=== PATIENT | female | born 1980 ===

== ENCOUNTER 2016-11-13 16:11 | Emergency (ER) | payer OTHER ==
[2016-11-13 17:10] LABS: BASOPHILS % (AUTO) 1 % (0-3); EOSINOPHILS % (AUTO) 5 % (0-9); HEMATOCRIT 43 % (35-47); MEAN CORPUSCULAR HGB CONC 33.9 gm/dl (32.0-36.0); MEAN CORPUSCULAR VOLUME 83 fL (81-99); MONOCYTES % (AUTO) 6.6 % (0-12); NEUTROPHILS % (AUTO) 50.8 % (37-80)
[2016-11-13 17:17] LABS: APPEARANCE,URINE Clear; BILIRUBIN,URINE NEGATIVE (NEGATIVE); COLOR,URINE Yellow; GLUCOSE, URINE (UA) NEGATIVE (NEGATIVE); KETONES,URINE NEGATIVE (NEGATIVE); LEUKOCYTE ESTERASE ,URINE NEGATIVE (NEGATIVE); NITRATE,URINE NEGATIVE (NEGATIVE); OCCULT BLOOD,URINE NEGATIVE (NEG-TRACE); PH,URINE 7.5; UROBILINOGEN,URINE 0.2 (0.2-1.0 EU)
[2016-11-13 17:28] LABS: ALBUMIN 4.1 gm/dl (3.4-5.0); POTASSIUM 3.8 mMol/L (3.5-5.1)
[2016-11-13 17:31] LABS: RBC,URINE 0-1 (0-3AV/HPF); WBC,URINE 0-2 (0-5AV/HPF)
[2016-11-13 17:39] VITALS: TEMP 99.3
[2016-11-13 19:22] VITALS: BP 140/83; PULSE 54; RESP 18; O2SAT 96
== END 2016-11-13 19:15 | disposition home or self-care (01) ==
LOC: ED 16:11
DX: N83.201 Unspecified ovarian cyst, right side (principal)
CPT/HCPCS: 99284 ×3; 80053; 81001; 83605; 85025; 85610; Q9967; 36415; 74177

== ENCOUNTER 2018-05-04 15:54 | Emergency (ER) | payer OTHER ==
[2018-05-04 16:09] VITALS: BP 150/91; PULSE 61; RESP 20; TEMP 97.2; O2SAT 99
[2018-05-04 16:43] LABS: APPEARANCE,URINE Clear; BILIRUBIN,URINE NEGATIVE (NEGATIVE); COLOR,URINE Yellow; GLUCOSE, URINE (UA) NEGATIVE (NEGATIVE); KETONES,URINE NEGATIVE (NEGATIVE); LEUKOCYTE ESTERASE ,URINE NEGATIVE (NEGATIVE); NITRATE,URINE NEGATIVE (NEGATIVE); OCCULT BLOOD,URINE NEGATIVE (NEG-TRACE); PH,URINE 5.5
[2018-05-04 16:50] LABS: BACTERIA 1+ (< 1+); CRYSTALS NEGATIVE (0-3 AVE/HPF); RBC,URINE 0-2 (0-3AV/HPF)
[2018-05-04] MEDS ORDERED: HYDROMORPHONE HCL 2 MG/ML SOL IV ONE (17:00)
[2018-05-04] MEDS ORDERED: SODIUM CHLORIDE 0.9% FLUSH 10 ML SOL IV PRN (17:05)
[2018-05-04] MEDS ORDERED: HYDROMORPHONE 1 MG/ML SYRINGE ONE (17:12)
== END 2018-05-04 18:09 | disposition home or self-care (01) ==
LOC: ED 15:54
DX: M54.9 Dorsalgia, unspecified (principal)
CPT/HCPCS: 72120; 81001; 96374; 99282; 99283; J1170